=== PATIENT | male | born 1955 | race Two or more races ===

== ENCOUNTER 2018-06-06 23:23 | Inpatient (IN) | payer OTHER ==
[~2018-06-06] VITALS: Ht 175.3 cm; Wt 114.8 kg
[2018-06-07] VITALS (11 sets, daily range): BP systolic 108–141; BP diastolic 54–89
--- NOTE | 2018-06-07 | NUR ---
PT BIBRA COMPLAINING OF BLACK STOOL, 2 TIMES TODAY. NO ABDOMINAL PAIN. PT AXO4. RESPIRATIONS EVEN AND UNLABORED. PT PUT ON THE UPPER TIER AND PULSE OX. PENDING EVAL FROM ER .
[2018-06-07] MEDS ORDERED: PANTOPRAZOLE 40 MG VIAL IV ONE (00:30)
[2018-06-07] MEDS ORDERED: IV NS 0.9% 1,000 ML BAG IV ONE (00:30)
[2018-06-07] MEDS ORDERED: ONDANSETRON HCL/PF 4 MG/2 ML VIAL IVP ONE (00:30)
[2018-06-07 00:50] LABS: BASOPHILS # (AUTO) 0.1 /CMM (0.0-0.2); BASOPHILS % (AUTO) 0.9 % (0.0-2.0); EOSINOPHILS % (AUTO) 2.4 % (0.0-6.0); HEMATOCRIT 25 % (39-51); HEMOGLOBIN 8.4 g/dL (13.5-17.5); LYMPHOCYTES # (AUTO) 1.6 /CMM (0.8-4.8); LYMPHOCYTES % (AUTO) 21.4 % (20.0-44.0); MEAN CORPUSCULAR HGB CONC 33 g/dl (31.0-36.0); MEAN CORPUSCULAR VOLUME 92 fL (80-96); MONOCYTES # (AUTO) 0.4 /CMM (0.1-1.30); NEUTROPHILS # (AUTO) 5.2 /CMM (1.8-8.9); NEUTROPHILS % (AUTO) 70.3 % (43.0-81.0); PLATELET COUNT (AUTO) 192 /CMM (150-450); RED BLOOD CELL COUNT(AUTO) 2.73 MIL/uL (4.5-6.0); WHITE BLOOD COUNT (AUTO) 7.4 K/uL (4.3-11.0)
[2018-06-07 00:59] LABS: CALCIUM, SERUM 9.5 mg/dL (8.5-10.1); CREATININE 1.6 mg/dL (0.6-1.3); POTASSIUM 4.9 mmol/L (3.5-5.1)
[2018-06-07 01:03] LABS: ALBUMIN 2.9 g/dL (3.4-5.0); BILIRUBIN,TOTAL 0.1 mg/dL (0.2-1.0)
[2018-06-07] MEDS ORDERED: ONDANSETRON HCL/PF 4 MG/2 ML VIAL ONE (02:10)
[2018-06-07] MEDS ORDERED: PANTOPRAZOLE 40 MG VIAL ONE (02:10)
--- NOTE | 2018-06-07 03:00 | NUR ---
PT RESTING IN BED, NAD NOTED. WILL CONTINUE TO MONITOR.
--- NOTE | 2018-06-07 03:29 | NUR ---
CALLED RN SUP FOR TELE BED.
--- NOTE | 2018-06-07 03:31 | NUR ---
BED 310-1.
--- NOTE | 2018-06-07 03:42 | NUR ---
REPORT GIVEN TO REUBEN LOPEZ FOR [facility].
--- NOTE | 2018-06-07 04:15 | NUR ---
[facility] NURSE STAFFRECRUITING INTERN NOTES RECEIVED FROM ER THIS 62 Y.O MALE,A/O X4 MOLDOVAN SPEAKING,ACCOMPANIED BY ,WITH CHIEF COMPLAINTS OF ABDOMINAL PAIN,BLACK STOOL X 2 STARTED YESTERDAY,NAUSEA,VOMITING WITH ABDOMINAL PAIN.H/H 8.4/13.5 IN ER.NO SKIN ISSUES,SALINE LOCK LEFT AC INTACT AND PATENT.DENIES PAIN UPON ARRIVAL ON THE UNIT.BED ON LOWEST POSITION AND LOCKED.CALL LIGHT IN REACH NEEDS ANTICIPATED.
--- NOTE | 2018-06-07 04:25 | NUR ---
TRANSVERSE ABDOMINAL MUSCLE NURSE NOTES DR VILLANUEVA WAS PAGE FOR ADMITTING ORDERS.
--- NOTE | 2018-06-07 04:40 | NUR ---
HEALTHCARE ADMINISTRATION INTERN NOTES DR VILLANUEVA CALLED WITH ADMITTING ORDERED NOTED AND CARRIED OUT.
[2018-06-07] MEDS ORDERED: *INSULIN REGULAR(HUMULIN R)HUM 100 UNIT/ML VIAL SQ PRN (05:00)
[2018-06-07] MEDS ORDERED: INSULIN REGULAR, HUMAN 100 UNIT/ML 3 ML VIAL SQ PRN (05:00)
[2018-06-07] MEDS ORDERED: DEXTROSE 50%-WATER 50 ML DISP.SYRIN IV PRN (05:00)
[2018-06-07] MEDS ORDERED: ONDANSETRON HCL/PF 4 MG/2 ML VIAL IV PRN (05:00)
--- NOTE | 2018-06-07 05:00 | NUR ---
THIRD HELPER NOTES STARTED ON IVF 03/28 100ML/HR RATE ORDERED INFUSING VIA IV PUMP.NPO ORDERED.PATIENT AND MADE AWARE.
[2018-06-07] MEDS: IV 1/2NS 1000 ML 1,000 ML IV PRN ×2 (05:18→20:42)
--- NOTE | 2018-06-07 05:53 | NUR ---
RESEARCH ARCHAEOLOGIST NOTES SR 83 ON TELE MONITOR,WITH INVERTED T WAVE.PATIENT SOUND ASLEEP AT THIS TIME.
--- NOTE | 2018-06-07 06:56 | NUR ---
WOOD MILLING MACHINE TENDER NOTES SLEEPING, AT BEDSIDE,IVF INFUSING,NPO STATUS,FOR GI CONSULT FOR ABDOMINAL PAIN AND GI BLEEDING.IN NO ACUTE DISTRESS.WILL ENDORSE TO DAY NURSE FOR [facility].
[2018-06-07 07:14] LABS: HEMOGLOBIN 7.3 g/dL (13.5-17.5)
--- NOTE | 2018-06-07 07:31 | NUR ---
JIG BORER OPENING NOTES PATIENT RECEIVED AWAKE IN BED IN NO ACUTE SIGNS OF DISTRESS. AT BEDSIDE. A/O X4. SERBIAN SPEAKING, DENIES PAIN OR ANY DISCOMFORTS AT THIS TIME. ON ROOM AIR, BREATHING EVEN AND UNLABORED. NO SOB NOTED. TELEMONITORING SHOWS SR WITH INVERTED T-WAVE, HR ON THE 80'S, NO C/O CARDIAC DISTRESS VOICED. IV ACCESS ON LAC INTACT AND PATENT, IVF OF 1/2 NS @ 100ML/HR INFUSING WELL. SKIN DRY AND WARM TO TOUCH. AFEBRILE. SAFETY PRECAUTIONS MAINTAINED. BED IN LOW LOCKED POSITION WITH SR UP X2. CALL LIGHT WITHIN REACH. WILL CONTINUE TO MONITOR ACCORDINGLY.
[2018-06-07] MEDS ORDERED: BENA20TA9 PO (07:47)
[2018-06-07] MEDS ORDERED: ATOR40TA PO (07:47)
[2018-06-07] MEDS ORDERED: METF-442 PO (07:47)
[2018-06-07] MEDS ORDERED: ASPI-1152 PO (07:47)
[2018-06-07] MEDS ORDERED: AMLO10TA7 PO (07:47)
[2018-06-07] MEDS ORDERED: ALLO100T PO (07:47)
[2018-06-07] MEDS: BLOOD SUGAR DIAGNOSTIC 1 EACH STRIP VI SCH ×4 (08:03→23:20)
--- NOTE | 2018-06-07 08:04 | NUR ---
RN NOTES PATIENT NOTED WITH BS OF 162MGDL THIS MORNING, INSULIN COVERAGE REFUSED AND PT IS NPO WELL. WILL CONTINUE TO MONITOR.
[2018-06-07] MEDS ORDERED: hydrALAZINE HCL IV 20 MG VIAL IV PRN (09:00)
[2018-06-07] MEDS: PANTOPRAZOLE 40 MG VIAL IV SCH ×2 (09:50→17:02)
--- NOTE | 2018-06-07 10:07 | NUR ---
RN NOTES DR VILLANUEVA CAME THIS MORNING AND AWARE THAT PT'S HGB 7.3. ORDERED TO OBTAIN CONSENT FOR BLOOD TRANSFUSION. EXPLAINED TO PT AND WHICH IS AT BEDSIDE, BOTH VERBALIZED UNDERSTANDING. PT'S SIGNED CONSENT AND FILED ON CHART. WILL CONTINUE TO MONITOR.
--- NOTE | 2018-06-07 15:13 | NUR ---
RN NOTES PATIENT STARTED ON BLOOD TRANSFUSION OF 1 UNIT PRBC 364ML. PRE BLOOD TRANSFUSION V/S : BP 136/71, P 103, T 98.1 AND R 18. WILL MONITOR FOR ANY ADVERSE REACTIONS.
[2018-06-07 19:10] LABS: OCCULT BLOOD STOOL POSITIVE (NEGATIVE)
--- NOTE | 2018-06-07 19:39 | NUR ---
MS RN CLOSING NOTES PATIENT AWAKE IN BED WITH AT BEDSIDE. A/O X4. AMERICAN SPEAKING. PT FOR EGD, PROCEDURE EXPLAINED BOTH TO PT AND , CONSENT SIGNED AND FILED IN CHART. PT MAINTAINED ON NPO ORDERED. ON ROOM AIR, BREATHING EVEN AND UNLABORED. NO SOB NOTED. IV ACCESS ON LAC INTACT AND PATENT, IVF OF 1/2 NS @ 100ML/HR INFUSING WELL. ALL NEEDS AND CARFE ATTENDED WELL. SAFETY PRECAUTIONS MAINTAINED. BED IN LOW LOCKED POSITION WITH SR UP X2. CALL LIGHT WITHIN REACH. [facility] FOR [facility].
--- NOTE | 2018-06-07 20:00 | NUR ---
MS RN NOTES RECEIVED ON BED A/O X3-4.SPEAK TUVALUAN WITH LITTLE ESTONIAN, AT BEDSIDE.SALINE LOCK LEFT AC INTACT AND PATENT.1/2 NS IN PROGRESS AT 100ML/HR RATE.DENIES PAIN AT THE MOMENT.CALL LIGHT IN REACH,NEEDS ANTICIPATED.
--- NOTE | 2018-06-07 20:15 | NUR ---
MS RN NOTES WENT TO THE TOILET,HAD BOWEL MOVEMENT AND SAYS,ITS STILL BLACK.
--- NOTE | 2018-06-07 21:00 | NUR ---
MS RN NOTES KELI CALLED,INFORMED ABOUT LATEST PT/INR,WITH ORDER TO KEEP PATIENT NPO,WILL DO THE EGD TONIGHT. AND PATIENT MADE AWARE.CONSENT ON CHART.
--- NOTE | 2018-06-07 21:35 | NUR ---
MS RN NOTES AUTOMOTIVE INSTRUCTOR BY OR CREW,FOR THE EGD IN STABLE CONDITION
[2018-06-07] MEDS ORDERED: ANESTHESIA TRAY IN PYXIS 1 EA TRAY MC ONE (22:21)
--- NOTE | 2018-06-07 23:10 | NUR ---
MS RN NOTES CAME BACK FROM SURGERY IN STABLE CONDITION.VITAL SIGNS WITH IN NORMAL LIMITS,REPORT GIVEN BY VICENTE LOPEZ.PEPTIC ULCER NOT BLEEDING/GASTRITIS.BIOPSY ALSO DONE TO R/O [id number].IVF FLUIDS RESUMED 1/2 AT 100ML/HR RATE,DUE CARAFATE ADMINISTERED.
[2018-06-07] MEDS: SUCRALFATE 1 G/10 ML UDC GT SCH (23:23)
--- NOTE | 2018-06-07 23:35 | NUR ---
MS RN NOTES ACCU-CHECK BLOOD SUGAR CHECK 119,NO INSULIN COVERAGE.
--- NOTE | 2018-06-08 03:00 | NUR ---
MS RN NOTES SLEEPING,NO DISTRESS
--- NOTE | 2018-06-08 05:45 | NUR ---
MS RN NOTES ACCU-CHECK BLOOD SUGAR CHECK 120,NO INSULIN COVERAGE.
--- NOTE | 2018-06-08 06:30 | NUR ---
MS RN NOTES FAIRLY RESTED AT NIGHT,IVF INFUSING WELL ON LEFT AC.TO START ON CLEAR LIQUID MEALS TODAY.IN NO ACUTE DISTRESS.WILL ENDORSE TO DAY NURSE FOR [facility].
[2018-06-08 06:37] LABS: BASOPHILS % (AUTO) 0.5 % (0.0-2.0); EOSINOPHILS % (AUTO) 2.8 % (0.0-6.0); HEMATOCRIT 24 % (39-51); HEMOGLOBIN 8.1 g/dL (13.5-17.5); LYMPHOCYTES # (AUTO) 1.4 /CMM (0.8-4.8); MEAN CORPUSCULAR HGB CONC 34 g/dl (31.0-36.0); MEAN CORPUSCULAR VOLUME 91 fL (80-96); MONOCYTES # (AUTO) 0.4 /CMM (0.1-1.30); MONOCYTES % (AUTO) 6.7 % (2.0-12.0); NEUTROPHILS # (AUTO) 4.4 /CMM (1.8-8.9); PLATELET COUNT (AUTO) 149 /CMM (150-450); RED BLOOD CELL COUNT(AUTO) 2.65 MIL/uL (4.5-6.0); WHITE BLOOD COUNT (AUTO) 6.5 K/uL (4.3-11.0)
[2018-06-08 06:51] LABS: CALCIUM, SERUM 8.8 mg/dL (8.5-10.1); CREATININE 1.4 mg/dL (0.6-1.3); POTASSIUM 4.6 mmol/L (3.5-5.1)
[2018-06-08 07:04] LABS: FERRITIN 69 ng/mL (8-388)
[2018-06-08 07:27] LABS: IRON, SERUM 112 ug/dl (50-175); TOTAL IRON BINDING CAPACITY 254 ug/dl (250-450)
[2018-06-08 08:00] VITALS: BP 131/86
[2018-06-08] MEDS: BLOOD SUGAR DIAGNOSTIC 1 EACH STRIP VI SCH (08:03)
[2018-06-08] MEDS ORDERED: PANT40TA2 PO (08:11)
[2018-06-08] MEDS ORDERED: SUCR1TAB31 PO (08:11)
[2018-06-08] MEDS ORDERED: FERR325T23 PO (08:11)
[2018-06-08] MEDS: SUCRALFATE 1 G/10 ML UDC GT SCH (08:56)
--- NOTE | 2018-06-08 11:00 | NUR ---
patient cleared for discharge to home by MD. Patient alert and oriented x4 , no distress or complain of pain, no dizziness. D/C instructions and education materials provided to the patient, patient verbalized understanding. Prescription for new meds given to the patient. Valuable form and d/c instruction form sighed by patient. IV assesses removed, ID wrist band removed. Patient will f/u with PCP and GI doctor in one week. patient has no skin issues. patient safely transferred to a [employer] car accompanied by his and COLLECTION SUPERVISOR.
== END 2018-06-08 11:00 | disposition home or self-care (01) | DRG 377 ==
LOC: ER 23:25 → TELE 06-07 03:54 → MED 06-07 11:12
PROVIDERS: ADMIT Internal Medicine; ATTEND Internal Medicine
PROC: 0DB78ZX Excision of Stomach, Pylorus, Via Natural or Artificial Opening Endoscopic, Diagnostic (ICD-10-PCS; principal; 2018-06-07)
PROC: 30233N1 Transfusion of Nonautologous Red Blood Cells into Peripheral Vein, Percutaneous Approach (ICD-10-PCS; principal; 2018-06-07)
DX: K29.01 Acute gastritis with bleeding (principal); N17.0 Acute kidney failure with tubular necrosis; K27.0 Acute peptic ulcer, site unspecified, with hemorrhage; F32.9 Major depressive disorder, single episode, unspecified; F41.9 Anxiety disorder, unspecified; Z87.11 Personal history of peptic ulcer disease; D50.0 Iron deficiency anemia secondary to blood loss (chronic); E78.5 Hyperlipidemia, unspecified; K21.9 Gastro-esophageal reflux disease without esophagitis; N18.9 Chronic kidney disease, unspecified; I12.9 Hypertensive chronic kidney disease with stage 1 through stage 4 chronic kidney disease, or unspecified chronic kidney disease; E11.22 Type 2 diabetes mellitus with diabetic chronic kidney disease; Z79.84 Long term (current) use of oral hypoglycemic drugs
CPT/HCPCS: 36415; 71045-TC; 80048-TC; 80076-TC; 82272-TC; 82728-TC; 82962-TC; 83540-TC; 83690-TC; 85025-TC; 85027-TC; 85730-TC; 86850-TC; 86921-TC; 87081-TC; 88305-TC; 88313-TC; 88342; C9113; G0378; J0330; J1815; J2405; J2704; J3490; J7030; P9016-BL